=== PATIENT | female | born 1995 | race Caucasian/White ===

== ENCOUNTER → 2018-08-17 12:00 | Outpatient (CLI) | payer OTHER, MEDICAID, SELFPAY ==
--- NOTE | 2018-08-17 12:06 | DI.US.S_ITS ---
PROCEDURE: US OB >= 14 WEEKS FETUS INDICATIONS: ANATOMY OUTSIDE/PRIOR DATING DATA: Last menstrual period (LMP): Unknown. LMP-based estimated date of delivery (STEPHANIE): N./A.. First dating scan (date and location): 08/17/18. Estimated date of delivery (STEPHANIE) from first dating scan: 12/27/18. TECHNIQUE: Real-time scanning was performed of the fetus, with image documentation and biometric measurements. Endovaginal scanning: No COMPARISON: None. FINDINGS: General: A single living intrauterine gestation is present. Presentation: Vertex. Placenta: Placental position is anterior, without previa. Amniotic fluid index: 12.3 cm, normal range is 5-24 cm. heart rate: 126 beats per minute. Maternal cervical canal: 3.6 cm long. Normal lower limit is 2.5 cm. biometrics: Biparietal diameter: 21 weeks 3 days Head circumference: 20 weeks 6 days Abdominal circumference: 21 weeks 3 days Femur length: 21 weeks Estimated gestational age from initial scan: not applicable. Composite gestational age from present scan: 21 weeks 1 day Estimated weight and percentile: 407 g Measurement variability for biometric dating: +/- 7 days from 14 weeks to 15 weeks 6 days gestation, +/- 10 days from 16 weeks to 21 weeks 6 days gestation, +/- 2 weeks from 22 weeks to 27 weeks 6 days gestation, +/- 3 weeks for 28 weeks gestation or later. weight reference: 4500 g or EFW >90/95% is considered macrosomia or large for gestational age. EFW <10% is small for gestational age. EFW 5% or less is considered intra-uterine growth restriction. Anatomic survey: Neuro: Ventricles are non-dilated at less than 10 mm. Cisterna magna is normal at 3-11 mm. Cerebellum is normal in size and morphology. Nuchal skin fold: Normal at less than 6 mm between 14-21 weeks gestational age. Face: Nose and lips, facial profile are normal. Spine: No evidence for spina bifida. Heart: 4-chambered heart is present, with normal ventricular outflow tracts. Diaphragm: Diaphragm is intact. Stomach: Left-sided stomach is present. Kidneys: No hydronephrosis. Normal is less than 5 mm in 2nd trimester, less than 7 mm in 3rd trimester. Cord: 3-vessel cord has orthotopic insertion. Bladder: Normal in size. Extremities: All 4 extremities identified. IMPRESSION: 1. Single living IUP present with composite mean gestational age of 21 weeks 1 day. 2. Normal anatomic survey. Dictated by: Keyon Peng [facility] Interpreted: Alejandro Dominguez MD on 08/17/2018 at 14:23 Approved by: Alejandro Dominguez M.D. on 08/17/2018 at 15:34
[2018-08-17 12:31] LABS: Add Manual Diff / Slide Review NO; Basophils Percent Auto 0.2 % (0-2); Eosinophils Percent Auto 0.3 % (2-4); Hematocrit 35.4 % (36-46); Lymphocytes Percent Auto 11.9 % (25-40); Mean Corpuscular HGB Conc 33.8 % (30-36); Mean Corpuscular Volume 88.8 fL (80-100); Monocytes Percent Auto 4.9 % (3-14); Neutrophils Absolute Auto 10100 /uL (3000-5900); Neutrophils Percent Auto 82.7 % (50-75); Platelet Count 239 X10^3/uL (150-400); Red Blood Cell Count 3.98 X10^6/uL (4.0-5.2); Red Cell Distribution Width 13.6 % (11.6-14.8); White Blood Cell Count 12.3 X10^3/uL (4.5-11.0)
[2018-08-17 14:19] LABS: Appearance Urine UA CLEAR; Bilirubin Urine UA NEGATIVE (NEGATIVE); Color Urine UA YELLOW; Glucose Urine UA NEGATIVE (Normal); Ketones Urine UA NEGATIVE (NEGATIVE); Leukocyte Esterase Urine UA NEGATIVE (NEGATIVE); Nitrite Urine UA NEGATIVE (Negative); Occult Blood Urine UA NEGATIVE (Negative); Protein Urine UA NEGATIVE (Negative); Urobilinogen Urine UA 0.2 E.U./dL (0.2); pH Urine UA 6.5 (4.5-8.0)
[2018-08-17 15:40] LABS: Hepatitis B Surface Antigen NEGATIVE s/c (NEGATIVE); Rubella Antibody IgG 26.8 IU/mL (>15)
[2018-08-17 15:54] LABS: HIV 1 and 2 Antibody NEGATIVE (NEGATIVE); Hep C Virus Ab w/Reflex Quant NEGATIVE s/c (NEGATIVE)
[2018-08-19 13:23] LABS: RPR Screen Nonreactive (Nonreactive)
[2018-08-20 08:53] LABS: HSV 2 IGG AB < 0.90 index (< 0.90)
== END ==
PROVIDERS: Visit Provider Family Medicine
DX: Z34.02 Encounter for supervision of normal first pregnancy, second trimester (principal); Z36.89 Encounter for other specified antenatal screening; Z3A.21 21 weeks gestation of pregnancy
CPT/HCPCS: 36415; 76811; 80055; 81003; 86695; 86696; 86703; 86787; 86803; 86850; 86900; 86901; 87086

== ENCOUNTER → 2018-10-18 14:03 | Outpatient (CLI) | payer OTHER, MEDICAID, SELFPAY ==
[2018-10-18 15:46] LABS: Hematocrit 34.1 % (36-46); Hemoglobin 11.2 g/dL (12.0-16.0)
[2018-10-18 16:04] LABS: GTT (PREG) 1 Hour PP 50gm Dose 80 mg/dL (76-139)
== END ==
PROVIDERS: PCP Family Medicine; Visit Provider Family Medicine
DX: Z34.92 Encounter for supervision of normal pregnancy, unspecified, second trimester (principal); Z3A.26 26 weeks gestation of pregnancy
CPT/HCPCS: 36415; 82950; 85014; 85018

== ENCOUNTER → 2018-12-03 15:42 | Outpatient (CLI) | payer OTHER, MEDICAID, SELFPAY ==
[2018-12-04 12:06] LABS: Strep Grp B PCR POS for Grp B Strep
== END ==
PROVIDERS: PCP Family Medicine; Visit Provider Family Medicine
DX: Z3A.36 36 weeks gestation of pregnancy (principal)
CPT/HCPCS: 87653

== ENCOUNTER 2018-12-13 06:57 | Observation (INO) | payer OTHER, MEDICAID, SELFPAY ==
[2018-12-13] MEDS: TERBUTALINE 1 MG/ML VIAL 0.25 MG SUBCUT (07:25)
--- NOTE | 2018-12-13 07:49 | PM.PROC.1 ---
Procedures Date/Time Date of procedure: 12/13/18 Time of procedure: 07:50 General Procedure description: Patient came in at 38 weeks with breech presentation fetus. Nonstress test was reactive. Ultrasound showed a breech with the head under a section of the placenta that showed grade 3 changes. Amniotic fluid volume is normal. Consent form was reviewed with the patient including the risks decreased heart rate that may require emergency , rupture of membranes or placental abruption that may require delivery today either vaginally or by . Patient receive subcu terbutaline 0.25 mg. Attempts x3 to rotate the baby were unsuccessful. The baby was monitored for 1 hr and was reactive and so the patient was discharged home. Complications: none
== END 2018-12-13 09:05 | disposition home or self-care (01) ==
PROVIDERS: Admitting Provider Family Medicine; PCP Family Medicine; Visit Provider Family Medicine
DX: O32.1XX0 Maternal care for breech presentation, not applicable or unspecified (principal); Z3A.38 38 weeks gestation of pregnancy
CPT/HCPCS: 59025; 59050; 59412; 76815; 96372; G0378; G0379

== ENCOUNTER 2018-12-17 17:11 | Inpatient (IN) | payer OTHER, MEDICAID, SELFPAY ==
--- NOTE | 2018-12-17 17:24 | PM.OBHP.1 ---
OB HPI Date/Time Date of admission: 12/17/18 Date Patient Seen: 12/17/18 Time Patient Seen: 17:00 History of Present Condition Chief complaint: eval of labor : 2 Para: 0 Estimated Date of Delivery: 12/26/18 Estimated Gestational Age (weeks): 38w 5d Narrative: Cristal Boogie is a 23 year old at 38 weeks 5 days. has been uncomplicated with the exception of breech presentation. External version was attempted 12/13/18 however unsuccessful. Patient was scheduled for a primary 12/24/18. She presented to clinic for an OB visit where she was found to be 4 cm dilated with footling breech. She was sent to the center where she was wisam every two minutes on the monitor. Due to dilation and regular contractions, the decision was made to proceed with . Indications Operative indications ( section): breech presentation (Footling) History of Present care: good care, initiated at week # (21), number of visits (7) and pounds weight gain (35) Dating criteria: based on 1st trimester US only Ultrasounds: normal mid trimester US Obstetrical complications: none Medical complications: none Preadmission Labs Blood type: AB (+) positive -: Antibody screen: negative, GBS status: positive, HBsAG: negative, HIV: negative, HSV 1: positive, HSV 2: negative and RPR/VDLR: negative -: Chlamydia screen: not detected and Gonorrhea screen: not detected -: Rubella: immune and Varicella: immune HCT: 35.4 HCAB: negative Urine: Negative 1 hr GTT: 80 Prior (ies) History: 2016 SAB 5 weeks Evaluation Evaluation Baseline heart rate: 140 Variability: Moderate (11-25) monitor accelerations: Present monitor decelerations: Absent Contraction Frequency (minutes): 3 Uterine Contraction Intensity: Mild Category of Tracing: I Cervical dilation (cm): 4 Cervical effacement (%): 75 station: -2 (foot in cervix) [facility] Medical History delivery (Acute) Spontaneous (Resolved) UTI (urinary tract infection) (Resolved) Family History Grandmother CVA (cerebral vascular accident) Family/Other Heart defect Social History marital status: unmarried,single 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) Smoking Status: Former smoker alcohol intake: former substance use type: marijuana Family History Grandmother CVA (cerebral vascular accident) Family/Other Heart defect Social History marital status: unmarried,single 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) Smoking Status: Former smoker alcohol intake: former substance use type: marijuana Meds Home Medications Medication Instructions Recorded Confirmed Type 1 tab PO DAILY 08/17/18 08/17/18 History vitamin,calcium,imukmhjr-ftuh-cosut acid tablet Allergies Allergy/AdvReac Type Severity Reaction Status Date / Time No Known Drug Allergies Allergy Unverified 08/17/18 10:49 Review of Systems Review of Systems All systems reviewed & are unremarkable except as noted in HPI and below Exam Const General: healthy appearing and comfortable HENMD Head: normal to inspection Ears: hearing grossly normal bilaterally Nose: external nose normal Face and sinus: normal facial exam Mouth: oral mucosae normal Teeth and gingiva: dentition normal Eyes General: appearance normal, both eyes and all related structures Neck Neck: normal visual inspection Resp Effort & Inspection: normal respiratory effort Auscultation: clear to auscultation bilaterally Cardio Rate: regular rate Rhythm: regular rhythm Heart Sounds: S1 normal and S2 normal External Female Exam: external appearance normal Manual OB Exam: dilated 4, effaced 75% and station (foot in cervix) -2 Uterus Location (Fundal Height): 38 Presentation: single footling breech Estimated Weight (lbs): 7 Neuro General: alert, awake and oriented x3 Extrem General: normal to inspection and no pedal edema
[2018-12-17] MEDS: LACTATED RINGERS 1,000 ML 1000 ML IV ×2 (17:30→18:50)
[2018-12-17 17:32] VITALS: BP 106/66
[2018-12-17 17:40] LABS: Add Manual Diff / Slide Review NO; Basophils Absolute Auto 0 /uL (0-100); Basophils Percent Auto 0.3 % (0-2); Eosinophils Absolute Auto 100 /uL (0-450); Eosinophils Percent Auto 0.5 % (2-4); Hematocrit 33.3 % (36-46); Hemoglobin 10.6 g/dL (12.0-16.0); Lymphocytes Absolute Auto 1800 /uL (1100-4500); Mean Corpuscular HGB Conc 31.7 % (30-36); Mean Corpuscular Hemoglobin 26.1 PG (26-34); Mean Corpuscular Volume 82.1 fL (80-100); Monocytes Absolute Auto 900 /uL (0-900); Monocytes Percent Auto 6.9 % (3-14); Neutrophils Absolute Auto 10000 /uL (1500-7000); Neutrophils Percent Auto 78.3 % (50-75); Platelet Count 253 X10^3/uL (150-400); Red Blood Cell Count 4.05 X10^6/uL (4.0-5.2); Red Cell Distribution Width 14.1 % (11.6-14.8); White Blood Cell Count 12.7 X10^3/uL (4.5-11.0)
--- NOTE | 2018-12-17 17:40 | P.HPOB_ITS ---
OB HPI Date/Time Date of admission: 12/17/18 Date Patient Seen: 12/17/18 Time Patient Seen: 17:00 History of Present Condition Chief complaint: eval of labor : 2 Para: 0 Estimated Date of Delivery: 12/26/18 Estimated Gestational Age (weeks): 38w 5d Narrative: Cristal Boogie is a 23 year old at 38 weeks 5 days. has been uncomplicated with the exception of breech presentation. External version was attempted 12/13/18 however unsuccessful. Patient was scheduled for a primary 12/24/18. She presented to clinic for an OB visit where she was found to be 4 cm dilated with footling breech. She was sent to the center where she was wisam every two minutes on the monitor. Due to dilation and regular contractions, the decision was made to proceed with . Indications Operative indications ( section): breech presentation (Footling) History of Present care: good care, initiated at week # (21), number of visits (7) and pounds weight gain (35) Dating criteria: based on 1st trimester US only Ultrasounds: normal mid trimester US Obstetrical complications: none Medical complications: none Preadmission Labs Blood type: AB (+) positive -: Antibody screen: negative, GBS status: positive, HBsAG: negative, HIV: negative, HSV 1: positive, HSV 2: negative and RPR/VDLR: negative -: Chlamydia screen: not detected and Gonorrhea screen: not detected -: Rubella: immune and Varicella: immune HCT: 35.4 HCAB: negative Urine: Negative 1 hr GTT: 80 Prior (ies) History: 2016 SAB 5 weeks Evaluation Evaluation Baseline heart rate: 140 Variability: Moderate (11-25) monitor accelerations: Present monitor decelerations: Absent Contraction Frequency (minutes): 3 Uterine Contraction Intensity: Mild Category of Tracing: I Cervical dilation (cm): 4 Cervical effacement (%): 75 station: -2 (foot in cervix) [facility] Medical History delivery (Acute) Spontaneous (Resolved) UTI (urinary tract infection) (Resolved) Family History Grandmother CVA (cerebral vascular accident) Family/Other Heart defect Social History marital status: unmarried,single 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) Smoking Status: Former smoker alcohol intake: former substance use type: marijuana Family History Grandmother CVA (cerebral vascular accident) Family/Other Heart defect Social History marital status: unmarried,single 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) Smoking Status: Former smoker alcohol intake: former substance use type: marijuana Meds Home Medications Medication Instructions Recorded Confirmed Type 1 tab PO DAILY 08/17/18 08/17/18 History vitamin,calcium,fzgzsdhr-wumt-avjuh acid tablet Allergies Allergy/AdvReac Type Severity Reaction Status Date / Time No Known Drug Allergies Allergy Unverified 08/17/18 10:49 Review of Systems Review of Systems All systems reviewed & are unremarkable except as noted in HPI and below Exam Const General: healthy appearing and comfortable HENGA Head: normal to inspection Ears: hearing grossly normal bilaterally Nose: external nose normal Face and sinus: normal facial exam Mouth: oral mucosae normal Teeth and gingiva: dentition normal Eyes General: appearance normal, both eyes and all related structures Neck Neck: normal visual inspection Resp Effort & Inspection: normal respiratory effort Auscultation: clear to auscultation bilaterally Cardio Rate: regular rate Rhythm: regular rhythm Heart Sounds: S1 normal and S2 normal External Female Exam: external appearance normal Manual OB Exam: dilated 4, effaced 75% and station (foot in cervix) -2 Uterus Location (Fundal Height): 38 Presentation: single footling breech Estimated Weight (lbs): 7 Neuro General: alert, awake and oriented x3 Extrem General: normal to inspection and no pedal edema
--- NOTE | 2018-12-17 17:40 | PM.PREOP ---
Pre-operative Note Interval Note History & Physical reviewed/Exam performed by Physician: Yes Changes to H&P: No
--- NOTE | 2018-12-17 17:45 | SUR.OPER ---
Supine on Padded OR bed, head on pillow, safety belt at thigh, arms secured on padded arm boards at <90 degrees abduction. Bump under right buttock. Legs uncrossed with pillow under knees, gel pad to heels, tape over blanket to lower legs.
[2018-12-17] MEDS: CEFAZOLIN 2 GM/100 ML FROZ.PIGGY IV (18:20)
--- NOTE | 2018-12-17 18:51 | SUR.OPER ---
VIABLE FEMALE INFANT DELIVERED AT 1839. CORD BLOOD AND PLACENTA TO OB WITH RN.
[2018-12-17 19:28] VITALS: BP 102/53; PULSE 62; RESP 16; O2SAT 97
[2018-12-17 19:32] VITALS: BP 101/56; PULSE 61; RESP 16; TEMP 36.2; O2SAT 97
--- NOTE | 2018-12-17 19:36 | PM.OP.1 ---
Operative Date/Time/Diagnoses Date of procedure: 12/17/18 Time of procedure: 18:30 Pre-op diagnosis: 38 weeks of Footling breech Post-op diagnosis: same Procedure & Clinicians Procedure: Low transverse section Same procedure as scheduled: Yes Indications: 38 weeks of Footling breech Surgeon: Jessica Adorno Industrial Maintenance Repairer: Bouchra Guy Anesthesia Type: Spinal Operative Notes Findings: Live female infant Normal uterus, fallopian tubes and ovaries Closure Type: primary Specimen(s): other (cord blood) Applied: catheter Estimated Blood Loss (mL): 700 Procedure in detail: The patient was taken to the operating room where she was placed in the seated position. Spinal anesthesia was administered. She was then placed in the dorsal supine position with a leftward tilt. She was prepped and draped in the usual sterile fashion. A timeout was performed. After spinal analgesia was found to be adequate, a Pfannenstiel skin incision was made 2 fingerbreadths above the pubic symphysis and carried through to the underlying layer fascia. The fascia was nicked in the midline and the incision extended bilaterally with Quigley scissors. The superior aspect of the fascial incision was grasped with a Amanda clamps, elevated, and the underlying rectus muscles dissected off sharply and bluntly. Attention was then turned to the inferior aspect of this incision which in a similar fashion was grasped with a Amanda clamps, elevated, and the underlying rectus muscles dissected off sharply and bluntly. The rectus muscles were in the midline. The peritoneum was identified and entered with blunt dissection. The bladder blade was inserted. The vesicouterine peritoneum was identified, grasped with the pickup, and entered sharply with the Metzenbaum scissors. This incision was extended bilaterally, and the bladder flap was created digitally. The bladder blade was reinserted. The lower uterine segment was incised in a transverse fashion with the scalpel. Upon entering the amniotic sac there was a large amount clear amniotic fluid. The 's feet were delivered then the legs grasped and the legs and body delivered and covered in a wet towel. The anterior arm was removed, baby was then rotated and the other arm delivered. The head delivered by keeping the head flexed and lifting the infant's body toward maternal chest. The nose and mouth were suctioned with bulb suction and the cord was clamped and cut. The was handed off to waiting RN and RT. The placenta was delivered manually. The uterus was cleared of all clots and debris. The uterine incision was repaired with O-Vicryl in a running interlocking fashion and a second layer the same suture was used for an imbricating layer. A figure of 8 of the same suture was placed on the left side of the uterine incision with good hemostasis. The tubes and ovaries were examined and were found to be normal. The gutters were cleared of all clots and debris. The parietal peritoneum was closed using 2-0 Vicryl in a running fashion. The fascia was reapproximated using 0-Vicryl in a running fashion. The subcutaneous layer was reapproximated with 3-OVicryl. The skin was closed with 4-0 Vicryl in a subcuticular fashion. Steri-Strips were placed. An Aquacel dressing was placed. The uterus was expressed of a small amount of old blood. Sponge, lap, and instrument counts were correct. The patient tolerated the procedure well, and was taken to PACU in stable condition.
[2018-12-17 19:37] VITALS: BP 111/56; PULSE 63; RESP 8; O2SAT 98
[2018-12-17 19:42] VITALS: BP 101/56; PULSE 62; RESP 16; TEMP 36.7; O2SAT 98
--- NOTE | 2018-12-17 20:06 | SUR.PHASEI ---
Pt arrived to PACU awake, no nausea no pain. VSS, report called sugey John, pt transported to room in and left in stable condition.
[2018-12-17] MEDS: LACTATED RINGERS 1,000 ML 200 ML IV (20:52)
[2018-12-17] MEDS: OXYCODONE/ACETAMINOPHEN 5/325 TABLET 1 TAB PO ×2 (21:28→22:22)
[2018-12-17] MEDS: NALBUPHINE 20 MG/ML AMPUL 10 MG IV (22:23)
[2018-12-18] MEDS: LACTATED RINGERS 1,000 ML 200 ML IV ×2 (01:28→06:18)
[2018-12-18] MEDS: KETOROLAC 30 MG/ML VIAL IV ×3 (02:25→14:45)
[2018-12-18] MEDS: OXYCODONE/ACETAMINOPHEN 5/325 TABLET 1 TAB PO ×3 (02:27→19:51)
[2018-12-18] MEDS: PRENATAL VIT,CALC/IRON/FOLIC 1 TABLET 1 TAB PO (08:20)
[2018-12-18] MEDS: DOCUSATE 250 MG CAPSULE PO (08:20)
[2018-12-18 08:57] LABS: Hematocrit 27.8 % (36-46); Hemoglobin 9.1 g/dL (12.0-16.0)
--- NOTE | 2018-12-18 09:43 | PM.OBPN.1 ---
Subjective - OB Patient comments: no complaints, pain well controlled, incisional pain (Minimal), tolerating diet and flatus present baby status: doing well feeding status: exclusively breast feeding Narrative: Patient denies complaints this morning. Pain is well controlled with Percocet. She has already ambulated and voided without difficulty. Working on breast-feeding though struggling somewhat with latch. Bleeding is moderate and decreasing. Date Patient Seen: 12/18/18 Time Patient Seen: 09:12 Exam Vital Signs (past 8 hours): Oxygen Delivery Method Room Air Temperature 98.2? blood pressure 86/53 (denies dizziness or lightheadedness) heart rate 79 respirations 16 General: Awake and alert, no acute distress. HEENT: NCAT, EOMI, moist oral mucosa CV: Regular rate and rhythm, no murmurs, rubs or gallops Lungs: CTAB, no wheezes, rales, or rhonchi Abdomen: Aquacel dressing dry and intact with minimal drainage. Soft, nontender; bowel tones active; uterus firm 1 cm below umbilicus Extremities: Warm, no edema, 2+ pedal pulses bilaterally Objective Labs Result Diagrams: 12/18/18 08:45 Labs: Laboratory Results - last 24 hr 12/17/18 12/17/18 12/18/18 17:30 17:30 08:45 WBC 12.7 H RBC 4.05 Hgb 10.6 L 9.1 L Hct 33.3 L 27.8 L MCV 82.1 MCH 26.1 MCHC 31.7 RDW 14.1 Plt Count 253 Neut % (Auto) 78.3 H Lymph % (Auto) 14.0 L [place] % (Auto) 6.9 Eos % (Auto) 0.5 L Baso % (Auto) 0.3 Neut # (Auto) 86371 H Lymph # (Auto) 1800 [place] # (Auto) 900 Eos # (Auto) 100 Baso # (Auto) 0 Blood Type AB Positive Antibody Screen Negative Assessment & Plan (1) 38 weeks gestation of : Status: Acute Current Visit: Yes (2) Footling breech presentation: Status: Acute Current Visit: Yes (3) Status post section: Status: Acute Current Visit: Yes Plan day: 1 plan OB: routine postop care Comments: Continue routine postop care Breast feeding support Daily iron Anticipate discharge home tomorrow or the next day. Time Spent With Patient Total time spent is greater than 50% in coordination of care (as documented) at patient's floor/unit and/or counseling patient: 15-24 minutes
[2018-12-18] MEDS: OXYCODONE/ACETAMINOPHEN 5/325 TABLET 2 TAB PO (13:42)
[2018-12-18 19:51] VITALS: TEMP 36.8
[2018-12-18 21:02] VITALS: TEMP 36.8
[2018-12-18] MEDS: IBUPROFEN 600 MG TABLET PO (21:02)
[2018-12-19 00:20] VITALS: TEMP 36.9
[2018-12-19] MEDS: OXYCODONE/ACETAMINOPHEN 5/325 TABLET 1 TAB PO ×2 (00:20→05:13)
[2018-12-19] MEDS: IBUPROFEN 600 MG TABLET PO ×2 (05:00→15:31)
[2018-12-19 05:13] VITALS: TEMP 36.9
[2018-12-19] MEDS: PRENATAL VIT,CALC/IRON/FOLIC 1 TABLET 1 TAB PO (10:15)
[2018-12-19] MEDS: DOCUSATE 250 MG CAPSULE PO (10:15)
[2018-12-19] MEDS: OXYCODONE/ACETAMINOPHEN 5/325 TABLET 2 TAB PO ×2 (10:18→15:31)
--- NOTE | 2018-12-19 10:19 | PM.OBDS.1 ---
Discharge Providers Date of admission: 12/17/18 17:11 Discharge Date: 12/19/18 Primary care physician: Jessica Adorno DO Consults: 12/17/18 20:09 Consult to Early Interventionist Routine Comment: Discharge provider: Jessica Adorno DO Summary Date Patient Seen: 12/19/18 Time Patient Seen: 09:47 Procedures: Primary low-transverse section Hospital Course: Patient is a 23-year-old G2 now P1 status post primary section on 12/17/18 for double footling breech 38+5 weeks gestation. Patient presented to her regularly scheduled OB appointment on 12/17/18 and was found to be 4 cm dilated. She was sent to the Center where she was wisam regularly and the decision was made to proceed with a . Patient did very well postoperatively. She was eating, ambulating, voiding and passing flatus. Bleeding was similar to menstrual cycle and decreasing at the time of discharge. Pain well controlled with ibuprofen and oxycodone. She had some difficulty with breast-feeding but after assistance was able to successfully latch her baby multiple times prior to discharge. Patient's mother is a to 3 educator and lives in [place]. Counseled patient to call for fevers, bleeding through more than a pad an hour or severe pain. She will follow up in clinic in 1 week for aquacel removal. Exam Temperature 98.6? blood pressure 110/61 heart rate 77 respirations 16 General: Awake and alert, no acute distress. HEENT: NCAT, EOMI, moist oral mucosa CV: Regular rate and rhythm, no murmurs, rubs or gallops Lungs: CTAB, no wheezes, rales, or rhonchi Abdomen: Lower abdominal dressing clean and dry. Soft, nontender; bowel tones active; uterus firm 1 cm below umbilicus Extremities: Warm, no edema, 2+ pedal pulses bilaterally Peripartum Data Infant Delivery Method: Section (Double footling breech) Procedures: Primary low transverse section complications: none 1: Gender: Female Disposition of : home Discharge Diagnosis (1) 38 weeks gestation of : Status: Acute (2) Footling breech presentation: Status: Acute (3) Status post section: Status: Acute Status at Discharge Cognitive/behavioral status at discharge: at baseline, oriented Functional status at discharge: independent ambulation Overall status at discharge: patient is progressing back to baseline Time Spent with Patient Total time spent providing and/or coordinating discharge services: Greater than 30 minutes Objective Labs Result Diagrams: 12/18/18 08:45 Discharge Plan Discharge Plan Patient Disposition: Home Discharge comment: Call for fevers, severe pain or bleeding through more than a pad an hour Discharge Med Rec/Prescriptions Prescriptions: New oxycodone-acetaminophen 5-325 mg Tablet 1 tab PO Q4HR PRN (Reason: Pain, Moderate (4-6)) Qty: 20 RF: 0 ibuprofen 600 mg Tablet 600 mg PO Q6HR PRN (Reason: As Needed For Fever/Mild Pain) Qty: 30 RF: 0 docusate sodium 250 mg Capsule 250 mg PO DAILY Qty: 30 RF: 0 ferrous gluconate 324 mg (38 mg iron) Tablet 324 mg PO DAILY Qty: 30 RF: 0 Continued prenat.vits,mckenzie,aof-ojwm-dyrvk tablet 1 tab PO DAILY RF: 0 Follow up/Referrals: Jessica Adorno DO [Primary Care Provider] - 12/24/18 9:30 am Provider Discharge Instructions Diet: Regular Skin/Wound/Dressing Care Report to your healthcare provider any signs of infection, such as:: chills, fever, night sweats and increased pain Discharge Data Primary Care Provider: Jessica Adorno Attending Provider: Jessica Adorno Admit Date/Time: 12/17/18 17:11
[2018-12-19 11:29] VITALS: BP 110/61; PULSE 77; RESP 16; TEMP 36.8
== END 2018-12-19 16:31 | disposition home or self-care (01) | DRG 540 ==
PROVIDERS: Admitting Provider Family Medicine; PCP Family Medicine; Visit Provider Family Medicine
PROC: 10D00Z1 Extraction of Products of Conception, Low, Open Approach (ICD-10-PCS; CPT 59514; principal; 2018-12-17 17:40)
DX: O75.82 Onset (spontaneous) of labor after 37 completed weeks of gestation but before 39 completed weeks gestation, with delivery by (planned) cesarean section (principal); O32.8XX0 Maternal care for other malpresentation of fetus, not applicable or unspecified; Z3A.38 38 weeks gestation of pregnancy; Z37.0 Single live birth; D62 Acute posthemorrhagic anemia; D64.9 Anemia, unspecified
CPT/HCPCS: 36415; 59050; 59514; 85014; 85018; 85025; 86850; 86900; 86901; G0379; J0690; J1885; J2274; J2300; J2405; J2590; J3010